=== PATIENT | male | born 1990 | race Caucasian/White ===

== ENCOUNTER 2024-05-11 11:30 | Outpatient (CLI) | payer OTHER, SELFPAY | END 2024-05-11 11:31 | disposition home or self-care (01) | LOC: NFLDREF 05-15 22:29 | PROVIDERS: PCP Physician Assistant Medical; Referring Provider Physician Assistant Medical; Visit Provider Family Medicine | DX: R30.0 Dysuria (principal); R39.89 Other symptoms and signs involving the genitourinary system | CPT/HCPCS: 87086 ==